=== PATIENT | male | born 1970 | race Caucasian/White ===

== ENCOUNTER 2022-04-18 14:44 | Outpatient (CLI) | payer OTHER, SELFPAY ==
[2022-04-18 21:50] LABS: Albumin* 4.7 g/dL (3.3-5.0)
[2022-04-18 21:51] LABS: Chloride* 105 mmol/L (96-114); Potassium* 4.5 mmol/L (3.6-5.1); Sodium* 141 mmol/L (135-149)
[2022-04-18 21:53] LABS: Aspartate Amino Transferase* 35 U/L (12-35); Bilirubin Total* 0.4 mg/dL (0.1-1.5); Carbon Dioxide* 25 mmol/L (20-32); Cholesterol* 131 mg/dL (90-199); Estimated Glomerular Filt Rate 89 ml/min; Total Protein* 7.4 g/dL (6.0-8.3)
[2022-04-18 21:54] LABS: Alanine Aminotransferase* 51 U/L (4-50); Alkaline Phosphatase* 77 U/L (40-150); Blood Urea Nitrogen* 16 mg/dL (7-30); Calcium* 9.5 mg/dL (8.4-10.6); Glucose* 83 mg/dL (60-115); HDL Cholesterol* 37 mg/dL (>=40); LDL Cholesterol Calculated 78 mg/dL (<100); Triglycerides* 81 mg/dL (40-149)
[2022-04-18 22:33] LABS: Hepatitis C Virus Antibody* Reactive (Negative)
== END 2022-04-18 14:45 | disposition home or self-care (01) ==
PROVIDERS: PCP Family Medicine; Visit Provider Family Medicine
DX: Z00.00 Encounter for general adult medical examination without abnormal findings (principal); B19.20 Unspecified viral hepatitis C without hepatic coma; G24.3 Spasmodic torticollis
CPT/HCPCS: 80053; 80061; 84153; 86803; 87522

== ENCOUNTER 2022-04-21 17:45 | Outpatient (CLI) | payer OTHER, SELFPAY ==
[2022-04-21 22:08] LABS: Iron* 23 ug/dL (49-181)
[2022-04-21 22:32] LABS: Ferritin* 4.8 ng/mL (17.9-464.0)
[2022-04-21 22:47] LABS: Vitamin B12* 489 pg/mL (243-894)
[2022-04-24 15:06] LABS: Folate, RBC 1478 ng/mL (>=366); Hematocrit (client supplied) 31.5 %
== END 2022-04-21 17:46 | disposition home or self-care (01) ==
PROVIDERS: PCP Family Medicine; Visit Provider Family Medicine
DX: D64.9 Anemia, unspecified (principal)
CPT/HCPCS: 82607; 82728; 82747; 83540